=== PATIENT | female | born 1950 | race African-American/Black ===

== ENCOUNTER 2016-11-18 11:04 | Day surgery (SDC) | payer OTHER, BC ==
[~2016-11-18] VITALS: Ht 165.1 cm; Wt 70.3 kg
[2016-11-18 11:24] LABS: CALCIUM 9.2 mg/dL (8.4-11.0); CREATININE 1.18 mg/dL (0.55-1.30); POTASSIUM 4.1 mmol/L (3.5-5.1)
[2016-11-18] MEDS ORDERED: LR 1,000 ML IV.SOLN IV ONE (11:45)
[2016-11-18] MEDS ORDERED: MIDAZOLAM HCL 5 MG/5 ML VIAL IVP ONE (11:45)
[2016-11-18] MEDS ORDERED: LEVOFLOXACIN 500 MG/D5W 100 ML PIGGYBACK IV ONE (11:45)
[2016-11-18] MEDS ORDERED: EPINEPHrine 1 MG/ML AMP IVP ONE (11:45)
[2016-11-18] MEDS ORDERED: PROPOFOL 200MG/ 20ML VIAL (DIPRIVAN) IV ONE (11:45)
[2016-11-18] MEDS ORDERED: DEXAMETHASONE SOD PHOSPHATE 4 MG/ML VIAL IVP ONE (11:45)
[2016-11-18] MEDS ORDERED: MUPIROCIN 2% TOPICAL OINTMENT 22 GM TP ONE (11:45)
[2016-11-18] MEDS ORDERED: fentaNYL CITRATE 250 MCG/5 ML AMP IV ONE (11:45)
[2016-11-18] MEDS ORDERED: NS IRRIG SOLN 1000 ML IR ONE (11:45)
[2016-11-18] MEDS ORDERED: WATER FOR IRRIGATION,STERILE 1,000 ML IRRIG.SOLN IR ONE (11:45)
[2016-11-18] MEDS ORDERED: GLYCOPYRROLATE 0.2 MG/ML VIAL IJ ONE (11:45)
[2016-11-18] MEDS ORDERED: ROCURONIUM BROMIDE 10 MG/ML (ZEMURON) IV ONE (11:45)
[2016-11-18] MEDS ORDERED: CEFAZOLIN 2 GM IVPB PREMIX 50 ML IV ONE (11:45)
[2016-11-18] MEDS ORDERED: OXYMETAZOLINE HCL 0.05% NASAL SPRAY NS ONE (11:45)
[2016-11-18] MEDS ORDERED: LIDOCAINE/EPI 1% 1:100000 20 ML VIAL INJ ONE (11:45)
[2016-11-18] MEDS ORDERED: ONDANSETRON HCL 4 MG/2 ML VIAL IVP ONE (11:45)
[2016-11-18] MEDS ORDERED: BACITRACIN ZINC 15 GM TOPICAL OINTMENT TP ONE (11:45)
[2016-11-18] MEDS ORDERED: SEVOFLURANE 15 MIN GAS INH ONE (11:45)
[2016-11-18] MEDS ORDERED: LR 1,000 ML IV SCH (14:08)
[2016-11-18] MEDS ORDERED: MORPHINE 2 MG/ML INJ. SYRINGE IVP PRN ×3 (14:15)
[2016-11-18] MEDS ORDERED: METOCLOPRAMIDE HCL 10 MG/2 ML VIAL IVP PRN (14:15)
[2016-11-18 15:32] VITALS: BP_SYST 143
== END 2016-11-18 17:00 | disposition home or self-care (01) ==
LOC: SMU 11:04 → SDS 11:04
PROVIDERS: ATTEND Otolaryngology
DX: J34.2 Deviated nasal septum (principal); J32.9 Chronic sinusitis, unspecified; J34.89 Other specified disorders of nose and nasal sinuses
CPT/HCPCS: 30520; 30999; 31254; 31267; 31288; 31296; 36415; 80048; 87070; 87075; 87101; 87116; 88305; 88311; 88313; 88333; J0171; J0690; J1100; J1956; J2250; J2405; J2704; J3010; J3490; J7120; 88304

== ENCOUNTER 2016-12-18 16:58 | Emergency (ER) | payer OTHER, BC ==
[~2016-12-18] VITALS: Ht 162.6 cm; Wt 70.3 kg
[2016-12-18 17:23] VITALS: BP_SYST 166
[2016-12-18] MEDS ORDERED: RIZATRIPTAN BENZOATE 10 MG PO ONE (18:00)
[2016-12-18] MEDS ORDERED: SUMAtriptan SUCCINATE 6 MG/0.5 ML VIAL ONE (18:41)
[2016-12-18] MEDS ORDERED: SUMAtriptan SUCCINATE 50 MG TABLET PO ONE (18:45)
[2016-12-18] MEDS ORDERED: SUMAtriptan SUCCINATE 6 MG/0.5 ML VIAL SUBCUT ONE (18:45)
== END 2016-12-18 19:27 | disposition home or self-care (01) ==
LOC: SED 16:58
DX: G43.909 Migraine, unspecified, not intractable, without status migrainosus (principal); Z88.5 Allergy status to narcotic agent
CPT/HCPCS: 96372; 99283; J3030

== ENCOUNTER 2017-01-06 22:09 | Emergency (ER) | payer OTHER, BC ==
[~2017-01-06] VITALS: Ht 165.1 cm; Wt 69.9 kg
[2017-01-06 22:23] VITALS: BP_SYST 153
[2017-01-06] MEDS ORDERED: PROCHLORPERAZINE EDISYLATE 10 MG/2 ML VIAL IVP ONE (23:00)
[2017-01-06] MEDS ORDERED: DIPHENHYDRAMINE INJ 50 MG/ML VIAL IVP ONE (23:00)
[2017-01-06 23:40] VITALS: BP_SYST 153
== END 2017-01-06 23:40 | disposition home or self-care (01) ==
LOC: SED 22:09
DX: G43.909 Migraine, unspecified, not intractable, without status migrainosus (principal); Z88.6 Allergy status to analgesic agent
CPT/HCPCS: 96374; 96375; 99284; J0780; J1200